=== PATIENT | female | born 1980 | race Caucasian/White ===

== ENCOUNTER 2017-04-13 10:54 | Emergency (ER) | payer SELFPAY | END 2017-04-13 13:05 | disposition home or self-care (01) | LOC: ERS 10:54 | DX: J20.9 Acute bronchitis, unspecified (principal); F32.9 Major depressive disorder, single episode, unspecified; F17.210 Nicotine dependence, cigarettes, uncomplicated; Z71.6 Tobacco abuse counseling | CPT/HCPCS: 87081; 87430; 87804; 99406 ==

== ENCOUNTER 2017-08-28 21:33 | Emergency (ER) | payer SELFPAY ==
[2017-08-28 22:09] LABS: #Basophils 0.1 thou/uL (0.0-0.2); #Eosinphils 0.3 thou/uL (0.0-0.7); #Lymphocytes 4.2 thou/uL (1.20-3.40); #Monocytes 0.9 thou/uL (0.11-0.59); #Neutrophils 7.4 thou/uL (1.40-6.50); %Basophils 0.9 % (0.0-1.0); %Eosinophils 2.6 % (0.0-10.0); %Lymphocytes 32.7 % (21.0-51.0); %Monocytes 6.6 % (0.0-10.0); %Neutrophils 57.2 % (42.0-75.0); Hemoglobin 13.9 g/dL (12.0-16.0); Mean Corpuscular Hemoglobin 27.6 pg (27.0-31.0); Mean Corpuscular Volume 83.5 fl (81.0-99.0); Mean Platelet Volume 7.1 fL (7.4-10.4); Platelet Count 329 thou/uL (130-400); RBC Distribution Width 15.5 % (11.5-14.5); Red Blood Cell (RBC) Count 5.05 mill/uL (4.20-5.40)
[2017-08-28 22:15] LABS: Bilirubin Negative (Negative); Blood, Urine Negative (Negative); Clarity CLEAR (Clear); Glucose, Urine (Dipstick) Negative (Negative); Leukocyte Negative (Negative); Nitrite Negative (Negative); Protein, Urine (Dipstick) Negative (Neg-Trace); Specific Gravity, Urine 1.009 (1.002-1.036); Urobilinogen 0.2 mg/dL (0.2-1.0)
--- NOTE | 2017-08-28 22:15 | RAD ---
AP VIEW CHEST: 08/28/17 HISTORY: Chest pain. AP view chest obtained on 08/28/17. Comparison made to previous exam from 08/20/16. AP view chest demonstrates the lungs to be well aerated. No evidence of active intrathoracic disease seen. No evidence of effusions, pneumonia or pneumothorax seen. IMPRESSION: Unremarkable AP view chest. POS: [facility]
[2017-08-28 22:16] LABS: Pregnancy Test - Urine (BHCG) Negative (Negative); Pregu Control Background? CLEAR/WHITE (CLR/WHITE); Pregu Control Bar Appear? YES (CONTROL BAR); Specific Gravity 1.009 (1.002-1.036)
[2017-08-28 22:24] LABS: Amphetamine Not Detected (NotDetected); Barbiturates Screen Not Detected (NotDetected); Benzodiazepine Screen Not Detected (NotDetected); Cocaine Metabolite Screen Not Detected (NotDetected); Medtox Control Line Valid? VALID (VALID); Medtox Reader # READER 4; Methadone Not Detected (NotDetected); Methamphetamine Not Detected (NotDetected); Opiate Screen Not Detected (NotDetected); Oxycodone Screen Not Detected (NotDetected); Phencyclidine (PCP) Not Detected (NotDetected); THC/Cannabinoid Screen Not Detected (NotDetected); Tricyclic Screen Not Detected (NotDetected)
[2017-08-28 22:28] LABS: ALT (SGPT) 24 U/L (8-55); AST (SGOT) 18 U/L (5-34); Albumin 3.8 g/dL (3.5-5.0); Alkaline Phosphatase 88 U/L (40-150); Anion Gap 14 mmol/L (10-20); BUN (Urea Nitrogen) 11 mg/dL (7.0-18.7); Bilirubin, Total 0.2 mg/dL (0.2-1.2); Calc. Creatinine Clearance 0 mL/min (70-130); Carbon Dioxide 20 mmol/L (22-29); Chloride 110 mmol/L (98-107); Estimated GFR-MDRD Greater than 90; Globulin 2.9 g/dL (2.4-3.5); Glucose 89 mg/dL (70-105); Lipase 20 U/L (8-78); Potassium 3.6 mmol/L (3.5-5.1); Protein, Total 6.7 g/dL (6.0-8.3); Sodium 140 mmol/L (136-145)
[2017-08-28 22:29] LABS: Acetaminophen Less than 6.0 mcg/mL (10.0-30.0); Alcohol 24 mg/dL (Less than 10); CK (CPK) 70 U/L (29-168); Salicylate Less than 8.0 mg/dL (15.0-30.0)
[2017-08-28 22:31] LABS: Troponin I Less than 0.010 ng/mL (< 0.028)
== END 2017-08-28 23:32 | disposition home or self-care (01) ==
LOC: ERS 21:33
DX: R07.89 Other chest pain (principal); F10.129 Alcohol abuse with intoxication, unspecified; Y90.1 Blood alcohol level of 20-39 mg/100 ml; Z71.6 Tobacco abuse counseling; F17.210 Nicotine dependence, cigarettes, uncomplicated; J45.909 Unspecified asthma, uncomplicated; F32.9 Major depressive disorder, single episode, unspecified; F41.9 Anxiety disorder, unspecified
CPT/HCPCS: 36415; 71045; 80053; 80306; 80307; 81003; 81025; 82553; 83690; 84443; 84484; 85025; 93005; 99406

== ENCOUNTER 2018-07-16 17:13 | Emergency (ER) | payer SELFPAY ==
[2018-07-16] MEDS ORDERED: Ketorolac Tromethamine 30 MG/ML VIAL ONE (17:39)
--- NOTE | 2018-07-16 18:03 | RAD ---
FRadiograph left foot 3 views: HISTORY: 37-year-old female status post acute traumatic injury to the foot FINDINGS: No evidence of fracture or dislocation. IMPRESSION: Negative
--- NOTE | 2018-07-16 18:04 | RAD ---
FRadiograph left ankle 3 views: HISTORY: Traumatic injury to ankle FINDINGS: Ankle mortise is congruent. No fracture. Talar dome is maintained. IMPRESSION: Negative
== END 2018-07-16 18:22 | disposition home or self-care (01) ==
LOC: ERS 17:13
DX: M79.672 Pain in left foot (principal); J45.909 Unspecified asthma, uncomplicated; F32.9 Major depressive disorder, single episode, unspecified; F17.210 Nicotine dependence, cigarettes, uncomplicated
CPT/HCPCS: 96372; J1885

== ENCOUNTER 2018-12-18 11:59 | Emergency (ER) | payer SELFPAY ==
--- NOTE | 2018-12-18 12:28 | RAD ---
EXAM: Portable chest PROVIDED CLINICAL HISTORY: Chest pain COMPARISON: 08/28/2017 FINDINGS: Cardiac and mediastinal silhouette is within normal limits. No focal consolidation, pleural fluid or pneumothorax evident. IMPRESSION: No evidence for an acute cardiopulmonary process.
[2018-12-18 12:35] LABS: #Eosinphils 0.3 thou/uL (0.0-0.7); #Lymphocytes 3.7 thou/uL (1.20-3.40); #Monocytes 0.8 thou/uL (0.11-0.59); #Neutrophils 6.9 thou/uL (1.40-6.50); %Basophils 0.4 % (0.0-1.0); %Eosinophils 2.5 % (0.0-10.0); %Lymphocytes 31.9 % (21.0-51.0); %Monocytes 6.4 % (0.0-10.0); Hemoglobin 14.4 g/dL (12.0-16.0); Mean Corpuscular HGB CONC 32.9 g/dL (32.0-36.0); Mean Corpuscular Hemoglobin 27.5 pg (27.0-31.0); Mean Corpuscular Volume 83.5 fL (78.0-98.0); Mean Platelet Volume 7.6 fL (7.4-10.4); Platelet Count 297 thou/uL (130-400); Red Blood Cell (RBC) Count 5.25 mill/uL (4.20-5.40); White Blood Cell (WBC) Count 11.7 thou/uL (4.8-10.8)
[2018-12-18 12:50] LABS: ALT (SGPT) 17 U/L (8-55); AST (SGOT) 14 U/L (5-34); Alkaline Phosphatase 92 U/L (40-150); Anion Gap 12 mmol/L (10-20); BUN (Urea Nitrogen) 13 mg/dL (7.0-18.7); Bilirubin, Total 0.3 mg/dL (0.2-1.2); Calc. Creatinine Clearance 0 mL/min (70-130); Calcium 9.1 mg/dL (7.8-10.44); Carbon Dioxide 21 mmol/L (22-29); Chloride 108 mmol/L (98-107); Estimated GFR-MDRD Greater than 90; Globulin 2.6 g/dL (2.4-3.5); Glucose 92 mg/dL (70-105); Potassium 4.5 mmol/L (3.5-5.1); Protein, Total 6.6 g/dL (6.0-8.3); Sodium 136 mmol/L (136-145)
[2018-12-18 13:13] LABS: Bacteria/HPF 3+ HPF (None Seen); Bilirubin Negative (Negative); Blood, Urine Negative (Negative); Clarity Turbid (Clear); Glucose, Urine (Dipstick) Normal (Negative); Leukocyte 250 Leu/uL (Negative); Nitrite Negative (Negative); Protein, Urine (Dipstick) Negative (Neg-Trace); RBC/HPF 0-3 HPF (0-3); Urobilinogen Normal mg/dL (Less than 2)
== END 2018-12-18 15:43 | disposition left against medical advice (07) ==
LOC: ERS 11:59
DX: J18.9 Pneumonia, unspecified organism (principal); R07.9 Chest pain, unspecified; F17.210 Nicotine dependence, cigarettes, uncomplicated; J45.909 Unspecified asthma, uncomplicated; F32.9 Major depressive disorder, single episode, unspecified; F41.9 Anxiety disorder, unspecified
CPT/HCPCS: 36415; 71045; 80053; 81003; 81015; 84484; 85025; 93005; 99406

== ENCOUNTER 2019-10-21 12:05 | Inpatient (IN) | payer SELFPAY ==
[2019-10-21] MEDS ORDERED: Ondansetron PF 4 MG/2 ML Vial IVP PRN ×2 (13:13→22:06)
[2019-10-21] MEDS ORDERED: Ondansetron ODT 4 MG TAB PO PRN (13:13)
[2019-10-21] MEDS ORDERED: Sodium Chloride 0.9% 1,000 ML IV SCH (13:15)
[2019-10-21 15:00] VITALS: BMI 34.9
[2019-10-21] MEDS ORDERED: metroNIDAZOLE 500 MG in Premix Bag 1 BAG IVPB SCH (22:00)
[2019-10-21] MEDS ORDERED: Acetaminophen 325 MG TAB PO PRN (22:07)
[2019-10-21] MEDS ORDERED: Sodium Chloride 0.9% (PF) 10 ML VIAL FS PRN (22:08)
[2019-10-21] MEDS ORDERED: Pantoprazole 40 MG VIAL IVP SCH (22:15)
[2019-10-21] MEDS: Acetaminophen 325 MG TAB PO PRN (22:29)
[2019-10-21] MEDS: Sodium Chloride 0.9% 1,000 ML IV SCH (22:34)
[2019-10-22] MEDS: Sodium Chloride 0.9% 1,000 ML IV SCH ×2 (00:17→11:23)
[2019-10-22] MEDS: metroNIDAZOLE 500 MG in Premix Bag 1 BAG IVPB SCH ×4 (06:01→21:44)
[2019-10-22 09:01] LABS: #Basophils 0.1 thou/uL (0.0-0.2); #Eosinphils 0.4 thou/uL (0.0-0.7); #Lymphocytes 3.3 thou/uL (1.20-3.40); #Monocytes 0.4 thou/uL (0.11-0.59); #Neutrophils 4.9 thou/uL (1.40-6.50); %Basophils 1.1 % (0.0-1.0); %Eosinophils 4.2 % (0.0-10.0); %Lymphocytes 36.3 % (21.0-51.0); %Monocytes 4.8 % (0.0-10.0); %Neutrophils 53.7 % (42.0-75.0); Hemoglobin 12.8 g/dL (12.0-16.0); Mean Corpuscular HGB CONC 32.4 g/dL (32.0-36.0); Mean Corpuscular Hemoglobin 27.5 pg (27.0-31.0); Mean Corpuscular Volume 84.9 fL (78.0-98.0); Mean Platelet Volume 7.2 fL (7.4-10.4); Platelet Count 328 thou/uL (130-400); RBC Distribution Width 14.1 % (11.5-14.5); Red Blood Cell (RBC) Count 4.66 mill/uL (4.20-5.40); White Blood Cell (WBC) Count 9.1 thou/uL (4.8-10.8)
[2019-10-22] MEDS: Pantoprazole 40 MG VIAL IVP SCH (09:16)
[2019-10-22] MEDS: Docusate 100 MG CAP PO SCH ×2 (09:16→21:43)
[2019-10-22 09:20] LABS: Anion Gap 9 mmol/L (10-20); BUN (Urea Nitrogen) 10 mg/dL (7.0-18.7); Calc. Creatinine Clearance 197 mL/min (70-130); Calcium 8.1 mg/dL (7.8-10.44); Carbon Dioxide 23 mmol/L (22-29); Chloride 109 mmol/L (98-107); Estimated GFR-MDRD Greater than 90; Glucose 87 mg/dL (70-105); Potassium 4.2 mmol/L (3.5-5.1); Sodium 137 mmol/L (136-145)
[2019-10-22] MEDS: Morphine 2 MG/ML VIAL SLOW IVP PRN ×2 (12:10→19:40)
[2019-10-22] MEDS: Acetaminophen 325 MG TAB PO PRN (17:25)
--- NOTE | 2019-10-22 18:46 | HP ---
CHIEF COMPLAINT: Abdominal pain. HISTORY OF PRESENT ILLNESS: Ms. Lambert is a 38-year-old woman, who presented to the [place] ER yesterday with left flank pain. She states that she started having some pain on Wednesday and went to the [facility] where she was diagnosed with diverticulitis. She states that she was sent home with a prescription for Flagyl only and has been taking that as prescribed, but the pain was getting worse, so she came back to the ER. She was transferred to [place] for admission after repeat CT at our facility showed a contained perforation. She states that her pain is better since being admitted. She is not having any nausea or vomiting. She is passing gas and has been having bowel movements throughout. She denies any fevers or chills and states that the pain is just on the left side and does not radiate. PAST MEDICAL HISTORY: Anxiety and depression. Heart murmur. 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 Tonsillectomy. PSYCHIATRIC HISTORY: Anxiety and depression. She does have a past history of one suicide attempt, none recently. Denies suicidal ideation and states that she does see someone for her anxiety and depression and this is managed. SOCIAL HISTORY: The patient does not smoke or does not drink or use illicit drugs. She does smoke a few cigarettes a day. ALLERGIES: SHE REPORTS AN ALLERGY TO PENICILLIN WHICH MAKES HER THROAT SWELL. SHE DOES NOT TOLERATE NORCO OR TRAMADOL DUE TO MENTAL STATUS CHANGES. MEDICATIONS: Outpatient medications include: 1. Tylenol with Codeine. 2. Metronidazole. 3. She received levofloxacin and metronidazole in the outside ER. REVIEW OF SYSTEMS: Ten-system review of systems is negative except per HPI. She did have nausea and vomiting prior to her presentation to the ER, but none since. PHYSICAL EXAMINATION: VITAL SIGNS: The patient has been afebrile since her admission, heart rate 78, respirations 16, 94% saturated on room air, blood pressure 136/79. GENERAL: Reveals a healthy-appearing woman, in no acute distress. NECK: Supple without lymphadenopathy or thyroid nodules. HEART: Regular in its rate and rhythm. She does have a very soft systolic murmur, which is heard best at the left upper sternal border when she holds her breath. LUNGS: Clear to auscultation bilaterally. ABDOMEN: Soft and nondistended. She is tender to palpation in the left lower quadrant greater than the left upper quadrant, but does not exhibit rigidity, rebound or guarding. EXTREMITIES: Warm and well perfused without edema. NEURO: No focal deficits. PSYCHIATRIC: Alert, oriented, and appropriate. LABORATORY DATA: White count is mildly elevated at 12 yesterday that has come down to 9.1 this morning. Electrolytes are unremarkable. LFTs are normal and serum is negative. CT images are reviewed and I agree with the written report. She has evidence of sigmoid diverticulitis with a contained air collection in the mesentery, but no abscess formation. ASSESSMENT: Diverticulitis with contained perforation, responding to IV antibiotics. This was incompletely treated by Flagyl alone as an outpatient, which does not offer adequate gram-negative coverage for diverticulitis. I do not consider this a failure of outpatient management since the treatment was inadequate. She is responding to IV antibiotics and I will advance her diet today. If she continues to improve, she will be discharged home on oral antibiotics, likely in 24-48 hours. Job ID: [id number]
[2019-10-23] MEDS: metroNIDAZOLE 500 MG in Premix Bag 1 BAG IVPB SCH ×4 (04:28→21:21)
[2019-10-23] MEDS: Sodium Chloride 0.9% 1,000 ML IV SCH ×2 (04:29→15:30)
[2019-10-23] MEDS: Morphine 2 MG/ML VIAL SLOW IVP PRN ×4 (04:29→19:21)
[2019-10-23 05:27] LABS: #Basophils 0.1 thou/uL (0.0-0.2); #Eosinphils 0.4 thou/uL (0.0-0.7); #Lymphocytes 3.8 thou/uL (1.20-3.40); #Monocytes 0.7 thou/uL (0.11-0.59); #Neutrophils 5.5 thou/uL (1.40-6.50); %Basophils 0.9 % (0.0-1.0); %Eosinophils 3.6 % (0.0-10.0); %Lymphocytes 36.8 % (21.0-51.0); %Monocytes 6.4 % (0.0-10.0); %Neutrophils 52.3 % (42.0-75.0); Mean Corpuscular HGB CONC 31.2 g/dL (32.0-36.0); Mean Corpuscular Hemoglobin 26.7 pg (27.0-31.0); Mean Corpuscular Volume 85.5 fL (78.0-98.0); Mean Platelet Volume 7.4 fL (7.4-10.4); Platelet Count 319 thou/uL (130-400); RBC Distribution Width 14.1 % (11.5-14.5); Red Blood Cell (RBC) Count 4.51 mill/uL (4.20-5.40); White Blood Cell (WBC) Count 10.4 thou/uL (4.8-10.8)
[2019-10-23] MEDS: Docusate 100 MG CAP PO SCH ×2 (09:25→19:22)
[2019-10-23] MEDS: Pantoprazole 40 MG VIAL IVP SCH (09:25)
--- NOTE | 2019-10-23 12:10 | PDOC.GSPN ---
Surgery Progress Note: Subj - Subjective Narrative: Patient is feeling okay. She is still having some pain. Medications are helping. No fevers. Not nauseated and tolerating her diet. Abdomen is soft and nondistended. She is still moderately tender to palpation in the left lower quadrant but does not exhibit rigidity rebound or guarding. Tenderness is about the same as yesterday. She is afebrile and her vital signs are normal. Assessment/plan: Diverticulitis with contained perforation. Clinically stable but not much improved. I am concerned about possible quinolone resistance with the patient has an anaphylactic reaction to penicillin. I will give her another 24 hours on the levofloxacin and if she has not improved I will switch her to meropenem. Surgery Progress Note: Obj - Vital signs Vital signs: Vital Signs - Most Recent Temp Pulse Resp BP Pulse Ox 97.7 F 73 18 133/76 98 10/23/19 10:47 10/23/19 10:47 10/23/19 10:47 10/23/19 10:47 10/23/19 10:47 Surgery Progress Note: Results - Labs Result Diagrams: 10/23/19 05:08 10/22/19 08:48 Lab results: Laboratory Results - last 24 hr 10/23/19 05:08 WBC 10.4 RBC 4.51 Hgb 12.0 Hct 38.6 MCV 85.5 MCH 26.7 L MCHC 31.2 L RDW 14.1 Plt Count 319 MPV 7.4 Neutrophils % 52.3 Lymphocytes % 36.8 Monocytes % 6.4 Eosinophils % 3.6 Basophils % 0.9 Neutrophils # 5.5 Lymphocytes # 3.8 H Monocytes # 0.7 H Eosinophils # 0.4 Basophils # 0.1
[2019-10-24] MEDS: Sodium Chloride 0.9% 1,000 ML IV SCH (04:05)
[2019-10-24] MEDS: Morphine 2 MG/ML VIAL SLOW IVP PRN (04:06)
[2019-10-24] MEDS: metroNIDAZOLE 500 MG in Premix Bag 1 BAG IVPB SCH ×4 (04:06→22:16)
[2019-10-24] MEDS: Pantoprazole 40 MG VIAL IVP SCH (08:33)
[2019-10-24] MEDS: Docusate 100 MG CAP PO SCH ×2 (08:33→22:16)
[2019-10-24] MEDS: Acetaminophen 325 MG TAB PO PRN ×3 (08:37→22:16)
--- NOTE | 2019-10-24 10:12 | PDOC.GSPN ---
Surgery Progress Note: Subj - Subjective Narrative: Patient is feeling better today. Her abdominal pain has significantly improved. She did have one episode of nausea and vomiting yesterday after eating lasagna brought in by a family member. No nausea or vomiting since however. She is passing gas normally and has not had any other problems with her diet. Her abdomen is soft nontender nondistended, much improved from yesterday. She is afebrile with normal vital signs. Assessment/plan: Diverticulitis, responding to medical management. Continue IV antibiotics for 24 hours. Plan transition to oral antibiotics tomorrow possible discharge home. Surgery Progress Note: Obj - Vital signs Vital signs: Vital Signs - Most Recent Temp Pulse Resp BP Pulse Ox 97.9 F 68 16 110/69 92 L 10/24/19 07:00 10/24/19 07:00 10/24/19 07:00 10/24/19 07:00 10/24/19 07:00 Surgery Progress Note: Results - Labs Result Diagrams: 10/23/19 05:08 10/22/19 08:48
[2019-10-25] MEDS: metroNIDAZOLE 500 MG in Premix Bag 1 BAG IVPB SCH ×2 (03:54→09:29)
[2019-10-25 05:21] LABS: #Basophils 0.1 thou/uL (0.0-0.2); #Eosinphils 0.4 thou/uL (0.0-0.7); #Lymphocytes 5.2 thou/uL (1.20-3.40); #Monocytes 0.8 thou/uL (0.11-0.59); #Neutrophils 5.7 thou/uL (1.40-6.50); %Basophils 1.1 % (0.0-1.0); %Eosinophils 2.9 % (0.0-10.0); %Lymphocytes 42.4 % (21.0-51.0); %Monocytes 6.6 % (0.0-10.0); %Neutrophils 46.9 % (42.0-75.0); Hemoglobin 12.1 g/dL (12.0-16.0); Mean Corpuscular HGB CONC 31.7 g/dL (32.0-36.0); Mean Corpuscular Volume 85.4 fL (78.0-98.0); Mean Platelet Volume 7.5 fL (7.4-10.4); Platelet Count 331 thou/uL (130-400); RBC Distribution Width 14.4 % (11.5-14.5); Red Blood Cell (RBC) Count 4.47 mill/uL (4.20-5.40); White Blood Cell (WBC) Count 12.2 thou/uL (4.8-10.8)
[2019-10-25] MEDS ORDERED: Polyethylene Glycol 3350 17 GM Packet PO SCH (09:00)
[2019-10-25] MEDS: Docusate 100 MG CAP PO SCH (09:19)
[2019-10-25] MEDS: Pantoprazole 40 MG VIAL IVP SCH (09:20)
[2019-10-25] MEDS ORDERED: metroNIDAZOLE 500 MG TAB PO SCH ×2 (10:30→15:00)
--- NOTE | 2019-10-25 11:27 | PDOC.GSPN ---
Surgery Progress Note: Subj - Subjective Narrative: Patient feels good today. No further nausea or vomiting. No abdominal pain. She has had 2 bowel movements and is tolerating a regular diet. Her abdomen is soft nontender nondistended. She is afebrile. Her white count is up a little bit but I think this is just a delayed reaction. She does not have a left shift. Assessment/plan: Diverticulitis responding to medical management. I am going to change her over to oral antibiotics and if she tolerates these I will discharge her home on a 10-day course of treatment. She can follow-up in my clinic in 2 to 3 weeks time to arrange outpatient follow-up colonoscopy. The importance of taking her antibiotics as prescribed was stressed. The importance of taking both antibiotics was stressed. Levofloxacin and Flagyl have the equivalent oral and IV bioavailability so she does take her antibiotics as prescribed this should be equivalent treatment. Surgery Progress Note: Obj - Vital signs Vital signs: Vital Signs - Most Recent Temp Pulse Resp BP Pulse Ox 98.2 F 78 12 133/81 97 10/25/19 07:13 10/25/19 07:13 10/25/19 07:13 10/25/19 07:13 10/25/19 07:13 Surgery Progress Note: Results - Labs Result Diagrams: 10/25/19 04:44 10/22/19 08:48 Lab results: Laboratory Results - last 24 hr 10/25/19 04:44 WBC 12.2 H RBC 4.47 Hgb 12.1 Hct 38.1 MCV 85.4 MCH 27.0 MCHC 31.7 L RDW 14.4 Plt Count 331 MPV 7.5 Neutrophils % 46.9 Lymphocytes % 42.4 Monocytes % 6.6 Eosinophils % 2.9 Basophils % 1.1 H Neutrophils # 5.7 Lymphocytes # 5.2 H Monocytes # 0.8 H Eosinophils # 0.4 Basophils # 0.1
[2019-10-25 12:12] VITALS: BP 160/84; TEMP 98
== END 2019-10-25 14:00 | disposition home or self-care (01) | DRG 392 ==
LOC: SURG A 12:37
PROVIDERS: ADMIT Surgery; ATTEND Surgery
DX: K57.80 Diverticulitis of intestine, part unspecified, with perforation and abscess without bleeding (principal); F41.9 Anxiety disorder, unspecified; F32.9 Major depressive disorder, single episode, unspecified; Z98.51 Tubal ligation status; Z90.49 Acquired absence of other specified parts of digestive tract; Z88.0 Allergy status to penicillin
CPT/HCPCS: 36415; 80048; 85025; C9113; J1956; J2270; J2405

== ENCOUNTER 2024-11-27 09:58 | Outpatient (CLI) | payer OTHER | END 2024-11-27 09:59 | disposition home or self-care (01) | LOC: BICCT 09:58 | PROVIDERS: ATTEND Family Medicine Sports Medicine | DX: S42.441A Displaced fracture (avulsion) of medial epicondyle of right humerus, initial encounter for closed fracture (principal); M77.01 Medial epicondylitis, right elbow ==

== ENCOUNTER 2024-12-12 07:49 | Outpatient (CLI) | payer OTHER ==
[2024-12-12 10:46] LABS: Hematocrit 46.9 % (36.0-47.0); Hemoglobin 14.2 g/dL (12.0-16.0); Mean Corpuscular Hemoglobin 25.6 pg (27.0-31.0); Mean Corpuscular Volume 84.5 fL (78.0-98.0); Platelet Count 348 10x3/uL (130-400); Red Blood Cell (RBC) Count 5.55 mill/uL (4.20-5.40); White Blood Cell (WBC) Count 15.30 10x3/uL (4.8-10.8)
[2024-12-12 10:59] LABS: Anion Gap 11 mmol/L (10-20); BUN (Urea Nitrogen) 13 mg/dL (7.0-18.7); Calc. Creatinine Clearance 0 mL/min (70-130); Calcium 9.0 mg/dL (7.8-10.44); Carbon Dioxide 24 mmol/L (22-29); Chloride 109 mmol/L (98-107); Glucose 88 mg/dL (70-105); Potassium 4.4 mmol/L (3.5-5.1); Sodium 140 mmol/L (136-145)
[2024-12-12 11:44] LABS: Anisocytosis SLIGHT = 6-15 cells HPF (0-5); Macrocytosis SLIGHT = 6-15 cells HPF (0-5); Platelet Adequacy Comment Platelets Normal; Polychromasia SLIGHT = 2-3 cells HPF (0-2); Smudge Cells 20.6 %; Spherocytes SLIGHT = 1-5 cells HPF (None Seen)
== END 2024-12-12 07:50 | disposition home or self-care (01) ==
LOC: LABBT 07:49
PROVIDERS: ATTEND Orthopaedic Surgery
DX: Z01.818 Encounter for other preprocedural examination (principal); G56.01 Carpal tunnel syndrome, right upper limb; G56.21 Lesion of ulnar nerve, right upper limb; M77.01 Medial epicondylitis, right elbow
CPT/HCPCS: 80048; 85025; 93005; 93010

== ENCOUNTER 2024-12-14 06:24 | Day surgery (SDC) | payer OTHER ==
[2024-12-12 08:26] VITALS: BMI 42.5
[2024-12-14] MEDS ORDERED: Ondansetron PF 4 MG/2 ML Vial ONE ×2 (08:45→08:58)
[2024-12-14] MEDS ORDERED: PROPOFOL 20 ML ONE (08:45)
[2024-12-14] MEDS ORDERED: fentaNYL PF 100 MCG/2 ML SYRINGE ONE (08:45)
[2024-12-14] MEDS ORDERED: Lidocaine 1% PF 5 ML VIAL ONE (08:45)
[2024-12-14] MEDS ORDERED: Ketorolac Tromethamine 30 MG (1 mL) VIAL ONE (10:46)
== END 2024-12-14 13:02 | disposition home or self-care (01) ==
LOC: SDC 06:24
PROVIDERS: ATTEND Orthopaedic Surgery
PROC: 0PBF0ZZ Excision of Right Humeral Shaft, Open Approach (ICD-10-PCS; principal; 2024-12-14)
PROC: 01N40ZZ Release Ulnar Nerve, Open Approach (ICD-10-PCS; principal; 2024-12-14)
PROC: 01N54ZZ Release Median Nerve, Percutaneous Endoscopic Approach (ICD-10-PCS; principal; 2024-12-14)
DX: G56.01 Carpal tunnel syndrome, right upper limb (principal); G56.21 Lesion of ulnar nerve, right upper limb; M77.01 Medial epicondylitis, right elbow; S42.441 Displaced fracture (avulsion) of medial epicondyle of right humerus; Z90.49 Acquired absence of other specified parts of digestive tract; Z90.89 Acquired absence of other organs; Z88.0 Allergy status to penicillin; Z91.018 Allergy to other foods; X58.XXXD Exposure to other specified factors, subsequent encounter
CPT/HCPCS: A6258; C1713; J0665; J1885; J2405; J2704; J3010; J3490

== ENCOUNTER 2024-12-16 19:14 | Emergency (ER) | payer OTHER ==
[2024-12-16] MEDS ORDERED: HYDROcodone/Acetaminophen 5/325 mg Tablet ONE (20:33)
== END 2024-12-16 22:32 | disposition home or self-care (01) ==
LOC: ERS 19:14
DX: G89.18 Other acute postprocedural pain (principal); M79.601 Pain in right arm; Z87.891 Personal history of nicotine dependence